=== PATIENT | female | born 1950 | race Caucasian/White ===

== ENCOUNTER 2019-07-26 13:49 | Emergency (ER) | payer OTHER ==
[~2019-07-26] VITALS: Ht 162.6 cm; Wt 68.0 kg
--- NOTE | ~2019-07-26 | EMS ---
[address] [address] EMS Patient Care Report Name: DOREEN VARGAS Room #: REG PRASHANT Scherer#: [id number] Admission: 07/26/19 Attend Phys: Discharge: Date of : 54 Report #: [id number] THIS REPORT FOR: //name// Report Transmitted: 07/26/2019 13:52 EMS Care Summary [place], [place]/[facility] Incident [id number] @ 07/26/2019 13:25 Incident Location [id number] [place] [address]-A Patient DOREEN VARGAS Female, 69 Years 1950 Patient Address [id number] [place] [address] [address] Patient History Seizures,Alzheimer's, Patient Allergies No known allergies, Patient Medications Keppra, Nystatin, Chief Complaint headache s/p fall Disposition Transported No Lights/[place] Dispatch Reason Falls Transported To [facility] Narrative STAFF REPORT A SLIP AND FALL TO THE CONCRETE FLOOR. PATIENT DENIES LOC AND ONLY COMPLAINS OF HEAD PAIN. STAFF REPORT PATIENT WAS ASSISTED UP BY STAFF AND EMS WAS THEN SUMMONED. PATIENT FOUND AMBULATORY THE SCENE WITH P45 ATTENDING. [address] [address] EMS Patient Care Report Name: DOREEN VARGAS Room #: REG PRASHANT Rivera.#: [id number] Admission: 07/26/19 Attend Phys: Discharge: Date of : 54 Report #: [id number] PATIENT IS CONFUSED BUT THIS IS BASELINE, PER STAFF, ALERT WITH NO OBVIOUS TRAUMA. PATIENT ASSISTED TO THE COT AND SECURED WITH ALL BELTS. PATIENT TRANSPORTED WITHOUT INCIDENT. RADIO REPORT TO [facility]. PATIENT CARE TRANSFERRED UPON ARRIVAL ROOM 6 Initial Vitals @PTAP: 76,BP: 130/79,Pain: 8/10,GCS: 14,SpO2: 96, @13:42P: 63,R: 16,BP: 112/65,Pain: 10/10,GCS: 14,CO: 1,SpO2: 98,Revised Trauma: 12, @13:39P: 66,R: 16,BP: 120/75,Pain: 10/10,GCS: 14,CO: 1,SpO2: 98,Revised Trauma: 12, Assessments @13:32MENTAL:Confused,Time Oriented,Event Oriented,SKIN:HEENT:Head/Face: No Abnormalities,Eyes: No Abnormalities,Neck/Airway: No Abnormalities,LUNG SOUNDS:General: No Abnormalities,ABDOMEN:General: No Abnormalities,PELVIS//GI:No Abnormalities,EXTREMITIES:Left Arm: No Abnormalities,Right Arm: No Abnormalities,Left Leg: No Abnormalities,Right Leg: No Abnormalities,PULSE:NEURO:No Abnormalities, Impression Headache Procedures @13:32ALS AssessmentResponse: Unchanged Timeline HOOKER LASTER,BP: 130/79 M,PULSE: 76,RR: R,SPO2: 96 Ox,ETCO2: ,BG: ,PAIN: 8,GCS: 14, 13:23,Call Received 13:23,Dispatch Notified 13:25,Dispatched 13:26,En Route 13:31,On Scene 13:32,At Patient 13:32,ALS Assessment,Response: Unchanged 13:39,BP: 120/75 M,PULSE: 66,RR: 16 R,SPO2: 98 Ox,ETCO2: ,BG: ,PAIN: 10,GCS: 14, 13:39,Depart Scene 13:42,BP: 112/65 M,PULSE: 63,RR: 16 R,SPO2: 98 Ox,ETCO2: ,BG: ,PAIN: 10,GCS: 14, 13:47,At Destination 13:54,Call Closed Disclaimer v1.1 Copyright 2019 [employer] This EMS Care Summary contains data elements from the applicable legal record [facility] [address] [place] [address] EMS Patient Care Report Name: DOREEN VARGAS Room #: REG Nicole.#: [id number] Admission: 07/26/19 Attend Phys: Discharge: Date of : 54 Report #: [id number] (which may be displayed differently). It is designed to provide pertinent information for the following purposes: continuity of care, clinical quality, and state data reporting. The complete legal record is available to ED staff and administrators of the receiving hospital in [employer]'s Patient Tracker. All data is provided "as is."
[2019-07-26 13:51] VITALS: BP 137/87
== END 2019-07-26 16:13 | disposition home or self-care (01) ==
LOC: ER 13:49
DX: S00.83XA Contusion of other part of head, initial encounter (principal); F03.90 Unspecified dementia, unspecified severity, without behavioral disturbance, psychotic disturbance, mood disturbance, and anxiety; W01.198A Fall on same level from slipping, tripping and stumbling with subsequent striking against other object, initial encounter; Y92.89 Other specified places as the place of occurrence of the external cause; Y93.89 Activity, other specified; Y99.8 Other external cause status

== ENCOUNTER 2020-02-22 08:48 | Emergency (ER) | payer OTHER ==
[~2020-02-22] VITALS: Ht 162.6 cm; Wt 68.0 kg
[2020-02-22] MEDS ORDERED: NOHOMEMEDICATIONS (09:02)
[2020-02-22 10:08] VITALS: BP 127/65
== END 2020-02-22 10:09 | disposition home or self-care (01) ==
LOC: ER 08:48
DX: S01.112A Laceration without foreign body of left eyelid and periocular area, initial encounter (principal); F03.90 Unspecified dementia, unspecified severity, without behavioral disturbance, psychotic disturbance, mood disturbance, and anxiety; W01.0XXA Fall on same level from slipping, tripping and stumbling without subsequent striking against object, initial encounter; Y93.89 Activity, other specified; Y92.89 Other specified places as the place of occurrence of the external cause; Y99.8 Other external cause status